=== PATIENT | female | born 1970 | race Caucasian/White ===

== ENCOUNTER 2018-06-26 02:15 | Emergency (ER) | payer OTHER ==
[~2018-06-26] VITALS: Ht 167.6 cm; Wt 85.4 kg
[2018-06-26] MEDS ORDERED: WELLBUTRIN (02:43)
[2018-06-26 03:16] LABS: BASOPHILS # (AUTO) 0.02 x10^3/uL (0-0.1); BASOPHILS % (AUTO) 0 % (0-1); EOSINOPHILS # (AUTO) 0.03 x10^3/uL (0-0.4); EOSINOPHILS % (AUTO) 0 % (1-7); LYMPHOCYTES # (AUTO) 1.28 x10^3/uL (1-3.4); LYMPHOCYTES % (AUTO) 14 % (22-44); MD NO; MEAN CORPUSCULAR HEMOGLOBIN 31.9 pg (27.0-34.8); MEAN CORPUSCULAR HGB CONC 33.4 g/dL (32.4-35.8); MEAN CORPUSCULAR VOLUME 95.6 fL (80-100); MEAN PLATELET VOLUME 7.4 fL (7.4-10.4); MONOCYTES # (AUTO) 0.47 x10^3/uL (0.2-0.8); MONOCYTES % (AUTO) 5 % (2-9); NEUTROPHILS # (AUTO) 7.59 x10^3/uL (1.8-6.8); NEUTROPHILS % (AUTO) 81 % (42-75); PLATELET COUNT 260 x10^3/uL (130-400); RED BLOOD COUNT 3.74 x10^6/uL (3.82-5.3); RED CELL DISTRIBUTION WIDTH 13.1 % (9.6-15.2)
[2018-06-26] MEDS ORDERED: ONDANSETRON ODT 4 MG ONE (03:24)
[2018-06-26] MEDS ORDERED: FAMOTIDINE 20 MG/2 ML ONE (03:25)
[2018-06-26] MEDS ORDERED: MORPHINE SULFATE 4 MG/ML, 1ML ONE (03:25)
[2018-06-26 03:28] LABS: ALANINE AMINOTRANSFERASE 155 U/L (12-78); ALBUMIN 3.1 g/dL (3.4-5.0); ANION GAP 2 mmol/L (5-15); CALCIUM 8.3 mg/dL (8.5-10.1); CHLORIDE 107 mmol/L (98-107); CREATININE 0.86 mg/dL (0.55-1.02)
[2018-06-26] MEDS ORDERED: MORPHINE SULFATE 4 MG/ML, 1ML IVPush PRN (03:30)
[2018-06-26] MEDS ORDERED: FAMOTIDINE 20 MG/2 ML IVP ONE (03:30)
[2018-06-26] MEDS ORDERED: SODIUM CHLORIDE FLUSH 10ML SYR IVF ONE (03:30)
[2018-06-26] MEDS ORDERED: ONDANSETRON ODT 4 MG PO ONE (03:30)
[2018-06-26 03:32] LABS: ALKALINE PHOSPHATASE 126 U/L (45-117); TOTAL PROTEIN 6.7 g/dL (6.4-8.2)
[2018-06-26 04:15] LABS: MICROSCOPIC INDICATED
[2018-06-26 04:26] LABS: CULTURE INDICATED? YES
[2018-06-26 04:44] VITALS: BP 142/84
== END 2018-06-26 05:05 | disposition home or self-care (01) ==
LOC: ED 03:14
DX: K80.70 Calculus of gallbladder and bile duct without cholecystitis without obstruction (principal)
CPT/HCPCS: 36415; 76700; 80053; 80307; 81001; 83690; 84703; 85025; 86677; 87086; 93005; 96374; 96375; 99285; Q0162; S0028